=== PATIENT | male | born 1965 | race Hispanic/Latino ===

== ENCOUNTER 2021-04-22 06:57 | Day surgery (SDC) | payer BC ==
[~2021-04-22] VITALS: Ht 170.2 cm; Wt 86.2 kg
[~2021-04-22 06:57] MED LIST: NIACIN ER500 M1 PO
[2021-04-22 08:50] VITALS: BP 145/95
--- NOTE | 2021-04-24 14:20 | NUR ---
PER PHYSICIAN, NOTIFIED PATIENT OF COLONOCOPY RESULTS, ADVISED TO REPEAT PROCEDURE IN FIVE YEARS, OR SOONER IF NECESSARY. RESULTS AND NOTE FORWARDED TO PRIMARY CARE FOR CONTINUITY OF CARE. PATIENT VERBALIZED NO CONCERNS AT TIME OF CALL.
== END 2021-04-22 09:20 | disposition home or self-care (01) | DRG 951 ==
LOC: ENDO 06:57 → ORM 08:00 → ENDO 09:20
PROVIDERS: ATTEND Surgery
PROC: 0DBF8ZX Excision of Right Large Intestine, Via Natural or Artificial Opening Endoscopic, Diagnostic (ICD-10-PCS; principal; 2021-04-22)
PROC: 0DBN8ZX Excision of Sigmoid Colon, Via Natural or Artificial Opening Endoscopic, Diagnostic (ICD-10-PCS; 2021-04-22)
DX: Z12.11 Encounter for screening for malignant neoplasm of colon (principal); D12.2 Benign neoplasm of ascending colon; K63.5 Polyp of colon; K57.30 Diverticulosis of large intestine without perforation or abscess without bleeding; Z80.0 Family history of malignant neoplasm of digestive organs